=== PATIENT | male | born 1975 | race Caucasian/White ===

== ENCOUNTER 2017-05-27 09:18 | Emergency (ER) | payer OTHER ==
[~2017-05-27] VITALS: Ht 182.9 cm; Wt 102.1 kg
[~2017-05-27 09:18] MED LIST: ACCUNEB SO1.25 MG/1; ADVAIR 100-501 EACH INH; ADVIL200 MG PO; ALBUTEROL2.5 MG/31 INH; ALBUTEROL2.5 MG/32 IH; AMOXICILLIN 50500 MG PO; FLOVENT HFA 1110 MCG IH; HYDROCODON-ACE1 EAC7 PO; IBUPROFEN 800800 MG PO; MEDROLDOSEPACK PO; NORCO 5-325 TA1 EAC1 PO; NORCO 5-325 TA1 EACH PO; PENICILLIN V P500 MG PO; PENICILLIN VK250 MG PO; PENICILLIN VK500 M1 PO; PENICILLIN VK500 MG PO; PERCOCET 5-3251 EACH PO; PROAIR HFA8.5 GM; PROAIR HFA8.5 GM IH; PROAIR HFA8.5 GM INH; PROAMATINE2.5 MG PO; ULTRAM 50MG TAB50 MG PO; ZPAK PO
[2017-05-27] MEDS ORDERED: PROAIR HFA8.5 GM PO (13:31)
[2017-05-27] MEDS ORDERED: PREDNISONE50 MG PO (13:31)
[2017-05-27 13:38] VITALS: BP 145/94
== END 2017-05-27 13:39 | disposition home or self-care (01) ==
LOC: M.ERS 09:18
DX: R07.81 Pleurodynia (principal); J45.909 Unspecified asthma, uncomplicated; F17.210 Nicotine dependence, cigarettes, uncomplicated

== ENCOUNTER 2018-03-04 10:01 | Emergency (ER) | payer OTHER ==
[~2018-03-04] VITALS: Ht 182.9 cm; Wt 98.9 kg
[~2018-03-04 10:01] MED LIST changes: +PREDNISONE50 MG PO; +PROAIR HFA8.5 GM PO
[2018-03-04] MEDS ORDERED: COMBIVENT INH ×2 (10:14→10:59)
[2018-03-04] MEDS ORDERED: PROAIR HFA8.5 GM INH (10:52)
[2018-03-04] MEDS ORDERED: NORCO 5-325 TA1 EACH PO (10:59)
[2018-03-04] MEDS ORDERED: IBUPROFEN 800800 M1 PO (10:59)
[2018-03-04] MEDS ORDERED: PREDNISONE 5 MG5 MG PO (11:00)
[2018-03-04 11:25] VITALS: BP 117/75
== END 2018-03-04 11:26 | disposition home or self-care (01) ==
LOC: M.ERS 10:01
DX: S93.402A Sprain of unspecified ligament of left ankle, initial encounter (principal); X58.XXXA Exposure to other specified factors, initial encounter; Y93.89 Activity, other specified; Y92.89 Other specified places as the place of occurrence of the external cause; Y99.8 Other external cause status; Z76.0 Encounter for issue of repeat prescription; J45.909 Unspecified asthma, uncomplicated